=== PATIENT | female | born 1985 | race Caucasian/White ===

== ENCOUNTER 2021-03-26 14:29 | Emergency (ER) | payer MEDICAID, SELFPAY ==
[~2021-03-26] VITALS: Ht 157.5 cm; Wt 86.2 kg
[2021-03-26 14:42] VITALS: BP_SYST 118
[2021-03-26] MEDS ORDERED: METOCLOPRAMIDE HCL 10 MG/2 ML VIAL IVP ONE (14:45)
[2021-03-26] MEDS ORDERED: LORazepam 2 MG/ML VIAL IVP ONE (14:45)
[2021-03-26] MEDS ORDERED: DIPHENHYDRAMINE INJ 50 MG/ML VIAL IVP ONE (14:45)
[2021-03-26] MEDS ORDERED: levETIRAcetam 1,000 MG IV BAG 100 ML IV ONE (14:45)
--- NOTE | 2021-03-26 14:45 | NUR ---
Placed in room 1 . Placed on cardiac cath technician, blood pressure machine and pulse oximeter. To gown for exam. Side rails up.
--- NOTE | 2021-03-26 14:50 | NUR ---
PT CAME IN C/O HAVING AURA'S AND FEELS LIKE SHE IS GOING TO HAVE A SEIZURE. STATES SHE HAS NOT TAKEN SEIZURE MEDICATION IN 3 DAYS "I FEEL LIKE MY SHUNT IS MALFUNCTIONING". 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 PT IS AMBULATORY, AAOX4, VSS, TREMULOUS ON ARRIVAL. SEIZURE SAFETY PROTOCOL IN PLACE.
--- NOTE | 2021-03-26 15:10 | NUR ---
PT REFUSING PIV, STATES "I'M A HARD STICK AND I NEED A PICC LINE OR AN EJ". ER DR EMMANUEL MADE AWARE
[2021-03-26 15:30] LABS: BASOPHILS % (AUTO) 0.4 % (0.0-2.0); EOSINOPHILS # (AUTO) 0.1 K/uL (0.0-0.4); EOSINOPHILS % (AUTO) 1.2 % (0.0-4.0); HEMATOCRIT 28.9 % (36-48); HEMOGLOBIN 9.2 g/dL (12.0-16.0); LYMPHOCYTES % (AUTO) 22.4 % (20.5-51.5); MEAN CORPUSCULAR HEMOGLOBIN 23 pg (27-31); MEAN CORPUSCULAR HGB CONC 32 % (32-36); MEAN CORPUSCULAR VOLUME 73 fL (79.0-98.0); MONOCYTES # (AUTO) 0.3 K/uL (0.0-1.0); MONOCYTES % (AUTO) 7.4 % (1.7-9.3); NEUTROPHILS # (AUTO) 3.2 K/uL (1.8-7.7); NEUTROPHILS % (AUTO) 68.6 % (40.0-70.0); PLATELET COUNT (AUTO) 289 K/uL (130-430); RED BLOOD CELL COUNT(AUTO) 3.99 MIL/uL (4.2-6.2); RED CELL DISTRIBUTION WIDTH 15.4 % (9.0-15.0); WHITE BLOOD COUNT (AUTO) 4.6 K/uL (4.8-10.8)
[2021-03-26] MEDS ORDERED: MORPHINE 4 MG INJ. 4 MG/ML VIAL IVP ONE (15:30)
--- NOTE | 2021-03-26 15:35 | NUR ---
Patient transported to radiology via GURNEY, accompanied by STAFF.
--- NOTE | 2021-03-26 15:40 | NUR ---
PT DEMANDING MORE PAIN MEDICATION, STATES "ONLY DILAUDID WORKS ON ME", "MORPHINE WON'T WORK". MADE AWARE
[2021-03-26 15:58] LABS: ANION GAP 9 (5-15); CALCIUM 8.1 mg/dL (8.4-11.0); CHLORIDE 105 mmol/L (98-107); CREATININE 0.58 mg/dL (0.55-1.30); GLUCOSE 83 mg/dL (70-99); POTASSIUM 3.8 mmol/L (3.5-5.1); SODIUM SERUM 140 mmol/L (136-145); UREA NITROGEN, BLOOD 11 mg/dL (8-21)
[2021-03-26 16:01] LABS: GFR AFRICAN AMERICAN 152 mL/min (>90)
[2021-03-26 16:05] LABS: ALANINE AMINOTRANSFERASE 18 U/L (12-78); ALBUMIN 3.3 g/dL (3.4-4.8); ASPARTATE AMINOTRANSFERASE 10 U/L (10-37); TOTAL BILIRUBIN 0.2 mg/dL (0.0-1.0)
[2021-03-26 16:06] LABS: C-REACTIVE PROTEIN QUANT < 0.2 mg/dL (0-0.5)
[2021-03-26 16:07] LABS: ALCOHOL, BLOOD < 3 mg/dL (<10)
--- NOTE | 2021-03-26 16:10 | NUR ---
PT AMBULATES TO BATHROOM WITH STEADY GAIT, ABLE TO PROVIDE URINE SAMPLE IN SPECIMEN CUP.
[2021-03-26 16:20] LABS: BARBITURATE, URINE NEGATIVE (NEG <=200); BENZODIAZEPINE, URINE POSITIVE (NEG <=150); CANNABINOID, URINE NEGATIVE (NEG <=50); COCAINE, URINE NEGATIVE (NEG <=150); METHAMPHETAMINES SCREEN,URINE NEGATIVE (NEG <=500); OPIATE, URINE POSITIVE (NEG <=100); PHENCYCLIDINE SCREEN,URINE NEGATIVE (NEG <=25); UR TRICYCLIC ANTIDEPRESSANTS NEGATIVE (NEG <=300); URINE AMPHETAMINE NEGATIVE (NEG <=500); URINE METHADONE NEGATIVE (NEG <=200); URINE OXYCODONE SCREEN NEGATIVE (NEG <=100); URINE PROPOXYPHENE SCREEN NEGATIVE (NEG <=300)
--- NOTE | 2021-03-26 16:20 | NUR ---
PT IS DEMANDING TO LEAVE, STATES SHE WOULD LIKE TO GO SOMEWHERE ELSE. ER DR. EMMANUEL MADE AWARE
--- NOTE | 2021-03-26 16:25 | NUR ---
ER DR. EMMANUEL AT THE BEDSIDE, PT REQUESTING TO HAVE EJ REMOVED AND IS REFUSING TO SIGN AMA PAPERWORK.
[2021-03-26 16:30] VITALS: BP_SYST 118
--- NOTE | 2021-03-26 16:30 | NUR ---
NO BLEEDING, SWELLING OR DISCOMFORT AT THE NECK SITE OF REMOVED EJ. PT IS AMBULATORY, AAOX4, VSS, NO DISTRESS
== END 2021-03-26 16:30 | disposition left against medical advice (07) ==
LOC: SED 14:29
DX: G40.109 Localization-related (focal) (partial) symptomatic epilepsy and epileptic syndromes with simple partial seizures, not intractable, without status epilepticus (principal); R51.9 Headache, unspecified; Z88.1 Allergy status to other antibiotic agents; Z88.6 Allergy status to analgesic agent; Z88.8 Allergy status to other drugs, medicaments and biological substances
CPT/HCPCS: 36415; 70450; 76376; 80053; 80307; 83605; 84703; 85025; 86140; 96365; 96375; 99284; G0482; J1953; J2060; J2270; J1200; J2765